=== PATIENT | female | born 1965 | race Caucasian/White ===

== ENCOUNTER 2020-12-24 06:46 | Day surgery (SDC) | payer OTHER, SELFPAY ==
--- NOTE | 2020-12-08 14:24 | PCM.HP.BLA ---
History and Physical Date of Admission: 12/24/20 Chelo Chappell is a 55 year old female who presents for problem visit for discussion PMB, endometrial hyperplaisa, likely endometrial polyp. Had some PMB and US and EMB done and presents to discuss surgery. Had a D&C 4 years ago. ? ? PAST MEDICAL HISTORY PAST MEDICAL HISTORY Diagnosis Date ? Abnormal glandular Papanicolaou smear of cervix ? ? Abn. Pap smear (cervix) ? Malignant neoplasm of breast (female), unspecified site ? ? Left Breast ? Simple endometrial hyperplasia without atypia 2010 ? Neg EMB 2010 and 2011 ? PAST SURGICAL HISTORY PAST SURGICAL HISTORY Procedure Laterality Date ? BX OF BREAST; INCISIONAL ? 12/22/2005 ? left breast with prior needle localization ? D&C, DIAG AND/OR THERAPEUTIC ? 2010 ? Dilation & curettage ? HYSTEROSCOPY ? 07/07/2016 ? Hysteroscopy D&C for PMB ? INSERTION OF ACCESS PORT ? 03/06/2006 ? L'SCOPE CHOLECYSTECTOMY ? 04/20/2020 ? MASTEC,MOD RADICAL ? 01/27/2006 ? left breast with SLND/ALND ? PAST SURGICAL HISTORY OF ? ? ? tubal ligation, mole removal ? PAST SURGICAL HISTORY OF ? 1968 ? uretheral dilatation ? REM LESION TRUNK,ARM, LEG <0.5 CM ? 03/20/2013 ? Exc. left posterior calf ruptured jaime cyst ? REMOVAL LEONEL VAD W PORT/PUMP ? 04/18/2007 ? Removal right IJ port ? FAMILY HISTORY FAMILY HISTORY Adopted: Yes Problem Relation Age of Onset ? other (unknown) Other ? ? Patient adopted ? other (Cancer, lung smoker) Mother ? ? never met mother, adopted ? Diabetes Father ? ? SOCIAL HISTORY Social History ? Tobacco Use ? Smoking status: Never Smoker ? Smokeless tobacco: Never Used Vaping Use ? Vaping Use: Never used Substance Use Topics ? Alcohol use: Yes ? ? Comment: Seldom ? Drug use: No ? CURRENT MEDICATIONS Current Outpatient Medications Medication Sig ? calcium carbonate/vitamin D2 ([id number]-589-I ORAL) Take 1 tablet by mouth once daily. ? ibuprofen (ADVIL) 200 mg tablet Take 600 mg by mouth as needed. ? No current facility-administered medications for this visit. ? Allergies As of Date: 12/08/2020 Allergen Noted Reaction ADHESIVE TAPE (ROSINS) 01/11/2006 Rash VICODIN [HYDROCODONE-ACETAMINOPHE*01/25/2006 ? Fully Assessed 12/08/2020 ? Expanded ROS: N/A Allergies and current medication updated:Yes ? EXAM: BP 128/82 Ht 5' 5 (1.65m) Wt 246 lb (111.6kg) LMP 03/11/2006 BMI 40.94 kg/(m^2). GENERAL: pleasant, female in no apparent distress HEENT: Normocephalic, atraumatic, mucus membranes moist and no lesions NECK: Supple, full range of motion, no adenopathy and thyroid normal Lungs- CTAB Reviewed last pap, EMB, pelvic US, previous pathology ? ASSESSMENT AND PLAN: PMB, endometrial hyperplasia, endometrial polyp on pelvic US ? The risks/benefits/alternatives and personal involved for the planned Hysteroscopy dilation and curettage and endometrial polyp resection were reviewed with the patient. Her questions were answered to her satisfaction and she desires to proceed. Consent was signed. I reviewed with her postop instructions and expectations. This h&P was completed in my office on Assessment & Plan Assessment/Plan (1) PMB (postmenopausal bleeding): (2) Endometrial polyp: (3) Endometrial hyperplasia:
[2020-12-19 10:44] LABS: Hematocrit 47.4 % (37-47); Hemoglobin 15.7 g/dL (12.0-15.0); Mean Corp Hgb Conc 33.1 g/dL (32-36); Mean Corpuscular Hgb 30.2 pg (27.0-32.0); Mean Corpuscular Volume 91.2 fL (81-99); Mean Platelet Vol. 9.9 fl (6.2-12.0); Platelet Count 240 K/mm3 (150-450); RBC Distribution Width SD 43.6 fl (35.1-43.9)
[2020-12-24] VITALS (7 sets, daily range): BP systolic 114–147; BP diastolic 77–110; PULSE 75–91; RESP 16; TEMP 36.3–36.9; O2SAT 91–95; BMI 40.3
[2020-12-24] MEDS: Lactated Ringers 1,000 ML 100 ML IV (07:00)
[2020-12-24] MEDS: Ketorolac 30 MG/ML Syringe IV (07:00)
[2020-12-24] MEDS: Acetaminophen 500 MG Tablet 1000 MG PO (07:00)
--- NOTE | 2020-12-24 08:30 | EMB_PTH ---
PATIENT: DIANE HAYNES LOC: [facility] [place] U#:[id number] AGE/SX: 55/F ROOM: RE12/24/[address]: Dr. Lena Leigh MD : 1965 BED: DIS: 12/24/2020 SPEC #: [id number] RECD: 12/24/20 13:39 STATUS: MARIVEL REChente #: [id number] ELKIN: 12/24/20 08:[address]: Lena Leigh DEPT: SURGICAL PATHOLOGY RECD BY: Roro Healy ENTERED: 12/24/20 13:54 SP TYPE: ENDOM BX/C HEATHER DR: REINA Gonzales Tissues: Endometrium, NOS Procedures: Surgery Specimen Level IV HEADER OPERATION: Hysteroscopy, dilation and curettage PRE-OP DIAGNOSIS: Postmenopausal bleeding, endometrial polyp, endometrial hyperplasia TISSUE SUBMITTED: Endometrial curettings MICROSCOPIC DIAGNOSIS Endometrium, curettings: Simple and focal complex hyperplasia without atypia. Scant fragments of benign squamous mucosa and endocervix. AM:am 12/25/20 COMMENT Case has been reviewed in consultation with Dr. Carreon who concurs with the above diagnosis. IDC:SJ MICROSCOPIC DESCRIPTION Slides are reviewed. GROSS DESCRIPTION Received in formalin is one container labeled with the patient name and designated endometrial curettings. The specimen consists of multiple elongated and irregular fragments of pink-sanchez tissue measuring in aggregate 5 x 3 x .02cm. The specimen is totally submitted in cassettes. /AM:am 12/24/20 TC:5 CPT:73153
[2020-12-24] MEDS: Lubricating Jelly 60 GM Tube 30 GM TOPICAL (09:03)
--- NOTE | 2020-12-24 09:22 | PCM.DC ---
Discharge Instructions Diet Discharge Diet: No restrictions Activity May resume sexual activity in: 2 weeks Lifting Restrictions: none Dressing / Incision Call your doctor if your incision/area has: Sudden Increased Bleeding and Foul Smelling Discharge Call your doctor if you observe: Fever of 101 or Higher and Using more than 1 pad per hour (for 2 hrs in a row) Follow Up Care Please Follow Up With: Lena Leigh MD When: 2-4 weeks or as needed. Call [phone] to make an appointment or with any concerns. Test Results: Test results from this visit will be discussed in further detail at your follow-up appointment, if applicable. Discharge Plan Admission Primary Reason for Your Visit: Dilation and curettage Attending Provider: Lena Leigh Primary Care Provider: Mónica Cummings Instructions Patient Instructions: Dilation and Curettage Discharge Orders/Prescriptions Prescriptions: No Action NK RF: 0 Referrals / Follow Up: Mónica Cummings PA [Primary Care Provider] - Disposition Disposition (needs filled in before D/C Order can be placed): Home, Self Care
--- NOTE | 2020-12-24 09:23 | PCM.OPRPT ---
Problems Associated Problem List Diagnoses (1) PMB (postmenopausal bleeding): (2) Endometrial polyp: (3) Endometrial hyperplasia: Report of Operation Date of Procedure: 12/24/20 Pre-Operative Diagnosis: PMB, endometrial hyperplasia Post-Operative Diagnosis: same Surgery/Procedure Performed:: Hysteroscoy D&C Description of Surgical Findings:: Ragged endometrium. Both tubal ostia identified. Normal cervix and vagina. Surgeon: Lena Leigh silviculture forester: BHAVIK Type of Anesthesia: MAC Anesthesiologist: Justen William Special Medications: none Specimen's removed: endometrial curettings Drains: none Estimated Blood Loss (mL): 10 Fluids Replaced: 700 Description of Procedure: The patient was taken to the OR where she was prepped and draped in dorsal lithotomy position. The weighted speculum was placed in the vagina and the anterior lip of the cervix was grasped with a single-tooth tenaculum. The cervix was dilated serially with Hegar dilators. The [5mm] hysteroscope was placed into the uterine cavity and the above findings were noted. Bilateral tubal ostia [were] identified. The hysteroscope was removed. A gentle sharp curettage was done of the uterine cavity. The instruments were removed from the vagina. The specimen was handed off and sent to pathology. All sponge and needle counts were correct. Vaginal sweep was performed by me. The patient was awakened and taken to the recovery room in stable condition. Hysteroscopic ins: 200cc normal saline Hysteroscopic outs:100cc Grafts/Implants Used: none Procedure Start Time: 08:52 Procedure Stop Time: 09:04 Complications none Admit VTE Documentation VTE Present on Admission: No VTE Mechan Device Prophylaxis: [facility]'s VTE Pharm Prophylaxis ordered?: No Reason prophylaxis not ordered:: Procedure Not Indicated
== END 2020-12-24 10:19 | disposition home or self-care (01) ==
LOC: SDC 06:46 → AC 06:47
PROVIDERS: PCP Physician Assistant; Referring Provider Obstetrics & Gynecology; Visit Provider Obstetrics & Gynecology
PROC: 0UDB8ZZ Extraction of Endometrium, Via Natural or Artificial Opening Endoscopic (ICD-10-PCS; CPT 58558; principal; 2020-12-24 08:20)
DX: N95.0 Postmenopausal bleeding (principal); N85.01 Benign endometrial hyperplasia
CPT/HCPCS: 00952; 58558; 36415; 85027; 88305; J7120; J2405

== ENCOUNTER → 2022-06-17 | Outpatient (CLI) | payer OTHER, SELFPAY | END | disposition home or self-care (01) | LOC: SL 10:20 | PROVIDERS: PCP Physician Assistant; Referring Provider Physician Assistant; Visit Provider Physician Assistant | DX: R06.83 Snoring (principal); E66.01 Morbid (severe) obesity due to excess calories; R40.0 Somnolence | CPT/HCPCS: 95806 ==

== ENCOUNTER → 2022-10-07 | Outpatient (CLI) | payer OTHER, SELFPAY | END | disposition home or self-care (01) | LOC: SL 20:12 | PROVIDERS: PCP Physician Assistant; Referring Provider Physician Assistant; Visit Provider Physician Assistant | DX: G47.33 Obstructive sleep apnea (adult) (pediatric) (principal); G47.34 Idiopathic sleep related nonobstructive alveolar hypoventilation | CPT/HCPCS: 95811 ==

== ENCOUNTER 2024-10-14 17:30 | Outpatient (RCR) | payer OTHER, SELFPAY ==
--- NOTE | 2024-10-14 18:14 | HP.OTEVAL_ITS ---
Patient's Visit Information Visit Information Visit Information: DIANE HAYNES is a 59 year old F, referred to Occupational Therapy by ANTHONY Nunes, with a diagnosis of lymphedema left UE. Date of Evaluation: 09/12/24 Occupational Therapist: SUNDAR Frausto/Dawna, CHT Subjective Subjective: This 59 year old female was seen for OT eval with dx of left UE lymphedema. pt was dx in 2005 with 11 lymph node removal pt states she noticed after 2025 due to left wrist cysts and swelling. 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 Lymphedema (Circumferential Measure) MCP: right 21cm left 22cm Wrist: right 17cm left 18cm Lower forearm: right 20cm left 21.5cm Largest forearm: right 28cm left 29cm Elbow: right 28cm left 29cm Largest humerus: right 30cm left 33cm Axcillary: right 38cm left 38.5cm Quick DASH-Disab of Arm,Shoulder& Hand Quick DASH Score: 1.6650 Goals Goal: Patient will demonstrate a 20% reduction in edema by discharge: Yes Goal: Patient will demonstrate adequate knowledge of self-massage by the end of the second week.: Yes Goal: Patient will demonstrate adequate knowledge of skin care and precautions by the end of the first week.: Yes Goal: Patient will demonstrate adequate knowledge of therapeutic exercises by discharge.: Yes Goal: Patient will select an appropriate compression garment and demonstrate adequate knowledge of correct donning technique, care and wearing schedule by discharge.: Yes Goal: Patient will voice understanding of need to replace compression garment every four to six months by discharge.: Yes Rehabilitation General Assessment: pt arrives with symptom consistent with edema in left UE demo need for OT services 3-6 visits to ed. pt on lymphedema mtg. Today therapist ed. pt on compression sleeve of 20-30mmHg, with compression glove- use of lymph stimulation exercise to perform 1-2x a day. therapist gave pt handout and ed. pt on self manual lymph drainage massage to perform 2-3x a day. therapist ed. pt on skin care and precautions. pt demo understanding and agree to POC. Rehabilitation Potential: Good Anticipated Interventions Anticipated Interventions: Education re assistive Equipment, Education re Diagnosis, Manual Lymph Drainage, Education re Life-long lymphedema Management, Education re Skin Care and Precautions, Education re Self Massage Techniques, Education re Correct Donning Tech,Care&Wearing Sched Comp Garments and Home Program Visit Plan Frequency: 1x/Week Duration: 4 Weeks TEXT: Thank you for the opportunity to evaluate your patient. For Medicare and Medicare HMO plans, please review the plan of care and approve it. It will need to be FAXED BACK to us at [phone] for Medicare purposes. Please let me know if there are questions or concerns regarding this plan of care. Physician Signature: Date:
--- NOTE | 2024-10-14 18:17 | OTREVAL_ITS ---
Re-Evaluation Intro: Agnes Mcdowell, CHELLE-C, It has been my pleasure to treat DIANE HAYNES over the last 2 visits for lymphedema left UE. Please see the progress note below for an update on the occupational therapy plan of care! Subjective Subjective: pt states she is doing OK- feels states she feels she is doing OK with her compression sleeve but has not noticed a change in arm size. pt states she is performing self massage 2x a day. lymph stimulation exercises 1-2x a day as able. pt states she is concerned as she does not want her arm to get larger. Objective Objective/Function: left MCP 23cm increase from 22cm left wrist 18cm same from initial eval left lower forearm 23cm initial 21.5cm ( increase by 1.5cm ) left Upper forearm 28.5cm initial 29cm left elbow 30.5cm initial 29cm (increase of 1.5cm) left hum 33.5cm (increase by .5cm) left ax 38.5cm (no change since evaluation) Pt arrives following 4 weeks of conservative left UE mtg. pt demo with increase in left UE limb circumference. pt demo no significant change in left arm circumference. measurements above demo a increase in areas of left UE. Left arm demo with lympstatic. Pt would benefit from a home compression pump to assist pt in successful mtg of her left UE lymphedema. Plan Plan Frequency: 1x/Week Duration: 4 Weeks Plan: pt demo with no significant change of left UE circumference measurements following 4 weeks of conservative treatment of lymphedema. Pt would benefit from home compression vaso pneumatic pump to assist pt in life long mtg of her left UE lymphedema. Goals Goals Goal: Patient will demonstrate a 20% reduction in edema by discharge: Yes Goal: Patient will demonstrate adequate knowledge of self-massage by the end of the second week.: Yes Goal: Patient will demonstrate adequate knowledge of skin care and precautions by the end of the first week.: Yes Goal: Patient will demonstrate adequate knowledge of therapeutic exercises by discharge.: Yes Goal: Patient will select an appropriate compression garment and demonstrate adequate knowledge of correct donning technique, care and wearing schedule by discharge.: Yes Goal: Patient will voice understanding of need to replace compression garment every four to six months by discharge.: Yes Patient Goals: Learn how to Manage Lymphedema Anticipated Interventions Anticipated Interventions Anticipated Interventions: Education re assistive Equipment, Education re Diagnosis, Manual Lymph Drainage, Education re Life-long lymphedema Management, Education re Skin Care and Precautions, Education re Self Massage Techniques, Ed ucation re Correct Donning Tech,Care&Wearing Sched Comp Garments and Home Program Re-Evaluation Ending Re-evaluation ending: Please do not hesitate to contact me at [phone] by phone or if you have questions or concerns regarding this new plan of care! Sincerely, Luz Schwartz, OTR/L, CHT
--- NOTE | 2025-01-07 12:07 | HP.OT.NRP ---
Patient Information Patient Information: DIANE HAYNES was seen in my office for initial evaluation on 09/12/24. The following Plan of Care was established for this patient: POC Established Initial Frequency: 1x/Week Initial Duration: 4 Weeks Plan: pt demo with no significant change of left UE circumference measurements following 4 weeks of conservative treatment of lymphedema. Pt would benefit from home compression vaso pneumatic pump to assist pt in life long mtg of her left UE lymphedema. Anticipated Interventions Anticipated Interventions: Education re assistive Equipment, Education re Diagnosis, Manual Lymph Drainage, Education re Life-long lymphedema Management, Education re Skin Care and Precautions, Education re Self Massage Techniques, Education re Correct Donning Tech,Care&Wearing Sched Comp Garments and Home Program Last Seen Last Seen: This patient was last seen in our office 10/14/24. Pertinent comments regarding their Occupational therapy will appear below: no further apts have been scheduled and due to time lapse in services pt is d/c at this time. At this point I will be discontinuing this patient from occupational therapy. I would be happy to see this patient again in the future if found appropriate by the physician. Thank you! Luz Schwartz, OTR/L, CHT
== END 2024-10-14 19:00 | disposition home or self-care (01) ==
LOC: OT 17:30
PROVIDERS: PCP Clinical Nurse Specialist Adult Health; Referring Provider Nurse Practitioner; Visit Provider Nurse Practitioner
DX: M79.89 Other specified soft tissue disorders (principal); Z90.12 Acquired absence of left breast and nipple
CPT/HCPCS: 97110; 97166; 97530